=== PATIENT | female | born 1995 | race Caucasian/White ===

== ENCOUNTER → 2017-01-12 | Outpatient (CLI) | payer OTHER ==
[2017-01-12 17:53] LABS: URINE APPEARANCE CLEAR (CLEAR); URINE BILIRUBIN NEG (NEG); URINE COLOR YELLOW; URINE EPITHELIAL CELL AUTO >30 /lpf (0-5); URINE NITRITE NEG (NEG); URINE SPECIFIC GRAVITY 1.011 (1.000-1.030); UROBILINOGEN NEG (NEG)
[2017-01-12 17:57] LABS: MANUAL MICROSCOPIC REQUIRED? NO; REVIEW REQ? NO
== END ==
LOC: C.LABSPEC 17:30
PROVIDERS: ATTEND Obstetrics & Gynecology
DX: Z34.90 Encounter for supervision of normal pregnancy, unspecified, unspecified trimester (principal)

== ENCOUNTER → 2017-01-20 | Outpatient (CLI) | payer OTHER ==
[2017-01-22 16:31] LABS: CHLAMYDIA TRACH RNA*** NOT DETECTED (NOT DETECTED); GC (NEIS GONORRHOEAE)RNA** NOT DETECTED (NOT DETECTED)
== END | disposition home or self-care (01) ==
LOC: C.LABSPEC 17:28
PROVIDERS: ATTEND Obstetrics & Gynecology
DX: Z34.90 Encounter for supervision of normal pregnancy, unspecified, unspecified trimester (principal)

== ENCOUNTER → 2017-02-17 | Outpatient (CLI) | payer OTHER ==
[2017-02-17 17:28] LABS: BASO % 0.3 %; BASO ABS # 0.02 K/uL (0-0.2); COMPLETE YES; EOS % 0.8 %; IG% 0.3 %; LYMPH % 19.4 %; LYMPH ABS # 1.55 K/uL (1.2-3.4); MEAN CELL VOLUME 91.6 fL (80-100); MEAN CORPUSCULAR HEMOGLOBIN 31.8 pg (25-34); MEAN CORPUSCULAR HGB CONC 34.7 g/dl (32-36); MEAN PLATELET VOLUME 9.9 fL (7.4-10.4); MONO % 4.9 %; NEUT % 74.3 %; PLATELET COUNT 214 K/uL (130-400); RED BLOOD COUNT 4.15 M/uL (4.2-5.4); WHITE BLOOD COUNT 7.99 K/uL (4.8-10.8)
== END | disposition home or self-care (01) ==
LOC: C.LAB1850 15:51
PROVIDERS: ATTEND Obstetrics & Gynecology
DX: Z34.81 Encounter for supervision of other normal pregnancy, first trimester (principal)

== ENCOUNTER 2017-10-21 23:27 | Emergency (ER) | payer OTHER ==
[~2017-10-21] VITALS: Ht 165.1 cm; Wt 66.0 kg
[2017-10-21 23:34] VITALS: Ht 165.1 cm; Wt 66.0 kg
--- NOTE | 2017-10-22 00:11 | EMERGENCY ROOM VISIT NOTE ---
History Report prepared by Romy: Chintan Laureano Under the Supervision of: Dr. Mona Armstrong D.O. First contact with patient: 23:41 Chief Complaint: DIZZY Stated Complaint: CHEST PAIN, VISION DISTORTION, DIZZY, ANXIOUS History of Present Illness The patient is a 22 year old female who presents to the Emergency Room with complaints of constant bilateral arm numbness and chest heaviness beginning this evening. The patient states her symptoms have been alleviated slightly since onset. She reports she has been dealing with lightheadedness for the past three weeks, and her anxiety is through the roof. The patient notes she had her second baby 2.5 months ago, and she had her first period since giving yesterday. She states for the past three weeks her vision will become distorted when she drives. The patient reports it is too much for her eyes to 'take in' and her surrounding are very vivid. She notes she has not been able to drive for the past three weeks because it makes her feel like she is going to pass out , and she enters a severe panic attack and does not want to crash her car with her kids in it. She reports she was evaluated for her lightheadedness two weeks ago and was told to come to the ED. The patent notes she did not come to the ED then because her boyfriend could not drive her. She states this evening she had an episode that consisted of bilateral arm numbness, chest heaviness, and shortness of breath. The patient reports she came to the ED because she was too afraid not to. She notes she has been dealing with her anxiety of the past 4 years after she had her first child. The patient states she was never on medications because she did not want to take them. She reports she cannot go to a psychiatrist or therapy because she cannot afford it. The patient notes she will have panic attacks a few time a day, breath, and then feel better. She states she does not follow up with anyone now, but she did follow up with her doctor during her . The patient reports she has a history of gestational diabetes and used dietary treatment. She notes she lives with her boyfriend and two kids. The patient states she does not work, and her boyfriend does not understand her anxiety problems. She reports he is the father of both her children. The patient notes her family lives out of town, and she does not talk with the boyfriend's parents. She states the rest of the boyfriend's family is supportive. The patient denies drug use, alcohol use, abdominal pain, chance of being , suicidal ideation, homicidal ideation, and a history of hypertension. She notes she has not been drinking water; she drinks milk and cranberry juice. Source of History: patient Onset: this evening Position: chest, arm (bilateral) Quality: numbness (arm), other (chest heaviness) Associated Symptoms: + SOB, No abdominal pain Note: Associated symptoms: lightheadedness, vision changes Denies: drug use, alcohol use, chance of being , suicidal ideation, homicidal ideation Review of Systems See HPI for pertinent positives & negatives. A total of 10 systems reviewed and were otherwise negative. Past Medical & Surgical The patient states she has a history of anxiety. Family History Cancer Social History Smoking Status: Never Smoker Smokeless Tobacco Use: No Alcohol Use: none Drug Use: none Marital Status: in relationship Housing Status: lives with family Occupation Status: unemployed Current/Historical Medications No Active Prescriptions or Reported Meds Allergies Coded Allergies: No Known Allergies (Unverified , 10/22/17) Physical Exam Vital Signs Date Time Temp Pulse Resp B/P (MAP) Pulse Ox O2 Delivery O2 Flow Rate FiO2 10/22/17 01:43 37.2 87 18 118/76 98 10/22/17 01:25 87 18 118/76 98 Room Air 10/22/17 00:23 79 10/21/17 23:34 37.2 89 20 135/83 100 Room Air Physical Exam HEENT: Head - normocephalic and atraumatic Pupils are equal, round, and reactive to light. Extraocular eye muscles are intact, and sclera are anicteric. Nose - moist nasal mucosa without discharge. Mouth - moist buccal mucosa. Oropharynx is nonerythematous and there is no tonsillar exudate or edema noted. Neck: Supple; no JVD, nuchal rigidity, cervical lymphadenopathy. Heart: Regular rate and rhythm. There is a normal S1 and S2 with no murmurs, clicks, or gallops appreciated. Lungs: Clear to auscultation bilaterally with no wheezes, rales, or rhonchi. Abdomen: Soft, completely nontender, nondistended, with good bowel sounds. There are no palpable pulsatile masses or hepatosplenomegaly. There is no guarding, rigidity, or rebound noted. Extremities: No evidence of cyanosis, clubbing, or edema. There are easily palpable peripheral pulses. Skin: Pale, warm and dry with good turgor and no rashes. Psychiatric: Appears slightly anxious. Denies suicidal and homicidal ideations. Medical Decision & Procedures Laboratory Results 10/22/17 00:06 10/22/17 00:06 Test 10/22/17 00:06 10/22/17 00:17 Red Blood Count 4.48 M/uL (4.2-5.4) Mean Corpuscular Volume 90.8 fL (80-100) Mean Corpuscular Hemoglobin 31.9 pg (25-34) Mean Corpuscular Hemoglobin Concent 35.1 g/dl (32-36) RDW Standard Deviation 42.7 fL (36.4-46.3) RDW Coefficient of Variation 13.0 % (11.5-14.5) Mean Platelet Volume 9.4 fL (7.4-10.4) Anion Gap 5.0 mmol/L (3-11) Est Creatinine Clear Calc Drug Dose 106.8 ml/min Estimated GFR () 132.1 Estimated GFR (Non- 113.9 BUN/Creatinine Ratio 15.6 (10-20) Calcium Level 9.4 mg/dl (8.5-10.1) Troponin I < 0.015 ng/ml (0-0.045) Thyroid Stimulating Hormone (TSH) 2.310 uIu/ml (0.300-4.500) Urine Color YELLOW Urine Appearance CLEAR (CLEAR) Urine pH 5.0 (4.5-7.5) Urine Specific [place] 1.025 (1.000-1.030) Urine Protein NEG (NEG) Urine Glucose (UA) NEG (NEG) Urine Ketones NEG (NEG) Urine Occult Blood NEG (NEG) Urine Nitrite NEG (NEG) Urine Bilirubin NEG (NEG) Urine Urobilinogen NEG (NEG) Urine Leukocyte Esterase NEG (NEG) Urine Test NEG (NEG) Laboratory results per my review. ECG Indication: chest pain Rate (beats per minute): 74 Rhythm: normal sinus Findings: no acute ischemic change, no ectopy ED Course 2342: The patient was evaluated in room B05. A complete history and physical examination were performed. Nursing notes and previous electronic medical records were reviewed. labs were drawn as above. 0107: ED case management spoke with the patient and gave her advice for outside psychiatric management. 0128: Upon reevaluation, the patient is resting. I discussed findings and results with her. She verbalized agreement of the treatment plan. The patient was discharged home. Medical Decision The patient is a 22 year old female who presents to the ED with chest pain and left arm tingling. Differential diagnosis includes anxiety, pleurisy, costochondritis, GERD, depression, cardiac ischemia. Labs results show: normal WBC, stable H&H, normal TSH, normal glucose and renal function, potassium is slightly low at 3.4, negative Urinalysis, negative , normal troponin. The patient suffers from anxiety. She has not been taking her medications and does not receive counseling. The anxiety seems to of worsened. She now has associated vision changes, lightheadedness and tingling in her left arm. The patient has no interest in taking medications to treat the anxiety. However , she is interested in talking to someone or having therapy. Our case management evaluated her insurance and have provided her a list of information and ways to follow up for outpatient counseling Impression Primary Impression: Anxiety Scribe Attestation The scribe's documentation has been prepared under my direction and personally reviewed by me in its entirety. I confirm that the note above accurately reflects all work, treatment, procedures, and medical decision making performed by me. Departure Information Dispostion Home / Self-Care Prescriptions No Active Prescriptions or Reported Meds Referrals No Doctor, Assigned (PCP) Forms HOME CARE DOCUMENTATION FORM, IMPORTANT VISIT INFORMATION Patient Instructions Anxiety Body Response, Anxiety Disorder, Anxiety Disorder Tx W Therapy, My [facility] Additional Instructions Follow up with a counselor/therapist through [employer]. Return to ER if symptoms worsen.
[2017-10-22 00:21] LABS: HEMATOCRIT 40.7 % (37-47); MEAN CELL VOLUME 90.8 fL (80-100); MEAN CORPUSCULAR HEMOGLOBIN 31.9 pg (25-34); MEAN CORPUSCULAR HGB CONC 35.1 g/dl (32-36); MEAN PLATELET VOLUME 9.4 fL (7.4-10.4); PLATELET COUNT 250 K/uL (130-400); RED BLOOD COUNT 4.48 M/uL (4.2-5.4); WHITE BLOOD COUNT 7.67 K/uL (4.8-10.8)
[2017-10-22 00:38] LABS: BLOOD UREA NITROGEN 12 mg/dl (7-18); BUN/CREATININE RATIO 15.6 (10-20); CALCIUM 9.4 mg/dl (8.5-10.1); CARBON DIOXIDE 27 mmol/L (21-32); CHLORIDE 107 mmol/L (98-107); CREATININE 0.75 mg/dl (0.60-1.20); GLUCOSE 91 mg/dl (70-99); POTASSIUM 3.4 mmol/L (3.5-5.1); SODIUM 139 mmol/L (136-145)
[2017-10-22 00:46] LABS: URINE APPEARANCE CLEAR (CLEAR); URINE BILIRUBIN NEG (NEG); URINE COLOR YELLOW; URINE NITRITE NEG (NEG); URINE SPECIFIC GRAVITY 1.025 (1.000-1.030); UROBILINOGEN NEG (NEG)
[2017-10-22 01:08] LABS: MANUAL MICROSCOPIC REQUIRED? NO; REVIEW REQ? NO
[2017-10-22 01:25] LABS: PREG INTERNAL NEGATIVE QC NEG CLEAR BACKGROUND; PREG INTERNAL POSITIVE QC POS CONTROL LINE
[2017-10-22 01:43] VITALS: BP 118/76; PULSE 87; TEMP 37.2; O2SAT 98
== END 2017-10-22 01:44 | disposition home or self-care (01) ==
LOC: C.EDB 23:28
DX: F41.9 Anxiety disorder, unspecified (principal)

== ENCOUNTER 2017-11-29 20:24 | Emergency (ER) | payer OTHER ==
[~2017-11-29] VITALS: Ht 165.1 cm; Wt 65.4 kg
[2017-11-29 20:27] VITALS: TEMP 36.4; Ht 165.1 cm; Wt 65.4 kg
[2017-11-29] MEDS ORDERED: SODIUM CHLORIDE 0.9% 1000ML 1,000 ML IV STA (21:15)
--- NOTE | 2017-11-29 21:21 | EMERGENCY ROOM VISIT NOTE ---
History Report prepared by Romy: Leo Powers Under the Supervision of: Tyra BoydO. First contact with patient: 20:51 Chief Complaint: SHORTNESS OF BREATH Stated Complaint: SHORTNESS OF BREATH, CHEST TIGHTNESS, PAIN IN SHOU Nursing Triage Summary: see triage note History of Present Illness The patient is a 22 year old female who presents to the Emergency Room with complaints of persistent shortness of breath occurring earlier today. She additionally states that she was having some sharp chest pain that went into her left shoulder, and she states that the pain comes and goes. She notes that her heart is racing, and she is having some jaw numbness. She denies any back pain, leg swelling, fevers, chills, cough, difficulty urinating and vomiting. The patient states that she has nausea in the mornings and at night, and she has a headache. She notes that she has not been drinking fluid recently, and she states these symptoms are similar to her anxiety. She additionally states that she has not been able to sleep very well due to the anxiety. The patient states that she had a child 4 months ago, and she is currently bottle feeding the baby, and she states that she has felt weak since then. Source of History: patient Onset: earlier today Position: other (global) Quality: other (shortness of breath) Timing: other (persistent) Associated Symptoms: + chest pain, No fevers, No chills, No cough, No vomiting, No back pain Note: Associated symptoms: Heart racing, jaw numbness Review of Systems See HPI for pertinent positives & negatives. A total of 10 systems reviewed and were otherwise negative. Family History Cancer Social History Smoking Status: Never Smoker Alcohol Use: none Drug Use: none Marital Status: in relationship Housing Status: lives with family Occupation Status: unemployed Current/Historical Medications No Active Prescriptions or Reported Meds Allergies Coded Allergies: No Known Allergies (Unverified , 11/29/17) Physical Exam Vital Signs Date Time Temp Pulse Resp B/P (MAP) Pulse Ox O2 Delivery O2 Flow Rate FiO2 11/29/17 22:03 84 18 107/76 99 Room Air 11/29/17 20:27 36.4 90 18 134/87 99 Room Air Physical Exam GENERAL: alert, anxious appearing, well nourished, no distress, non-toxic EYE EXAM: normal conjunctiva, PERRL and EOM's grossly intact OROPHARYNX: no exudate, no erythema, lips, buccal mucosa, and tongue normal and mucous membranes are moist NECK: supple, no nuchal rigidity, no adenopathy, non-tender LUNGS: Clear to auscultation. Normal chest wall mechanics HEART: no murmurs, S1 normal and S2 normal ABDOMEN: abdomen soft, non-tender, normo-active bowel sounds, no masses, no rebound or guarding. BACK: Back is symmetrical on inspection and there is no deformity, no midline tenderness, no CVA tenderness. SKIN: no rashes and no bruising UPPER EXTREMITIES: upper extremities are grossly normal. LOWER EXTREMITIES: No pitting edema. NEURO EXAM: Normal sensorium, cranial nerves II-XII grossly intact, normal speech, no gross weakness of arms, no gross weakness of legs. Medical Decision & Procedures ER Provider Diagnostic Interpretation: Radiology results have been interpreted by the radiologist and reviewed by me. CHEST ONE VIEW PORTABLE HISTORY: Atypical chest pain COMPARISON: None. FINDINGS: The lungs are clear. Cardiac silhouette is normal in size. No pleural effusions. No pneumothorax. IMPRESSION: No acute process. Electronically signed by: Toro Obando M.D. 11/29/2017 9:48 PM Dictated Date/Time: 11/29/2017 9:47 PM Laboratory Results 11/29/17 21:01 Red Blood Count 4.71, Mean Corpuscular Volume 91.3, Mean Corpuscular Hemoglobin 32.3, Mean Corpuscular Hemoglobin Concent 35.3, Mean Platelet Volume 9.7, Neutrophils (%) (Auto) 66.8, Lymphocytes (%) (Auto) 26.2, Monocytes (%) (Auto) 5.3, Eosinophils (%) (Auto) 1.2, Basophils (%) (Auto) 0.4, Neutrophils # (Auto) 5.39, Lymphocytes # (Auto) 2.12, Monocytes # (Auto) 0.43, Eosinophils # (Auto) 0.10, Basophils # (Auto) 0.03 11/29/17 21:01 Test 11/29/17 21:01 11/29/17 21:08 White Blood Count 8.08 K/uL (4.8-10.8) Red Blood Count 4.71 M/uL (4.2-5.4) Hemoglobin 15.2 g/dL (12.0-16.0) Hematocrit 43.0 % (37-47) Mean Corpuscular Volume 91.3 fL (80-100) Mean Corpuscular Hemoglobin 32.3 pg (25-34) Mean Corpuscular Hemoglobin Concent 35.3 g/dl (32-36) Platelet Count 281 K/uL (130-400) Mean Platelet Volume 9.7 fL (7.4-10.4) Neutrophils (%) (Auto) 66.8 % Lymphocytes (%) (Auto) 26.2 % Monocytes (%) (Auto) 5.3 % Eosinophils (%) (Auto) 1.2 % Basophils (%) (Auto) 0.4 % Neutrophils # (Auto) 5.39 K/uL (1.4-6.5) Lymphocytes # (Auto) 2.12 K/uL (1.2-3.4) Monocytes # (Auto) 0.43 K/uL (0.11-0.59) Eosinophils # (Auto) 0.10 K/uL (0-0.5) Basophils # (Auto) 0.03 K/uL (0-0.2) RDW Standard Deviation 40.6 fL (36.4-46.3) RDW Coefficient of Variation 12.1 % (11.5-14.5) Immature Granulocyte % (Auto) 0.1 % Immature Granulocyte # (Auto) 0.01 K/uL (0.00-0.02) Anion Gap 7.0 mmol/L (3-11) Est Creatinine Clear Calc Drug Dose 85.2 ml/min Estimated GFR () 100.5 Estimated GFR (Non- 86.7 BUN/Creatinine Ratio 18.9 (10-20) Calcium Level 9.8 mg/dl (8.5-10.1) Magnesium Level 1.8 mg/dl (1.8-2.4) Total Bilirubin 0.3 mg/dl (0.2-1) Aspartate Amino Transf (AST/SGOT) 16 U/L (15-37) Alanine Aminotransferase (ALT/SGPT) 33 U/L (12-78) Alkaline Phosphatase 76 U/L (45-117) Troponin I < 0.015 ng/ml (0-0.045) Total Protein 8.2 gm/dl (6.4-8.2) Albumin 4.4 gm/dl (3.4-5.0) Globulin 3.8 gm/dl (2.5-4.0) Albumin/Globulin Ratio 1.1 (0.9-2) Thyroid Stimulating Hormone (TSH) 1.410 uIu/ml (0.300-4.500) Monoscreen NEG (NEG) Urine Color YELLOW Urine Appearance CLEAR (CLEAR) Urine pH 7.5 (4.5-7.5) Urine Specific [place] 1.009 (1.000-1.030) Urine Protein NEG (NEG) Urine Glucose (UA) NEG (NEG) Urine Ketones NEG (NEG) Urine Occult Blood NEG (NEG) Urine Nitrite NEG (NEG) Urine Bilirubin NEG (NEG) Urine Urobilinogen NEG (NEG) Urine Leukocyte Esterase SMALL (NEG) Urine WBC (Auto) 1-5 /hpf (0-5) Urine RBC (Auto) 0-4 /hpf (0-4) Urine Hyaline Casts (Auto) 1-5 /lpf (0-5) Urine Epithelial Cells (Auto) >30 /lpf (0-5) Urine Bacteria (Auto) NEG (NEG) Laboratory results per my review. Medications Administered Medications (Trade) Dose Ordered Sig/Li Route Start Time Stop Time Status Last Admin Dose Admin Sodium Chloride 1,000 ml @ 999 mls/hr Q1H1M STAT IV 11/29/17 21:15 11/29/17 22:15 DC 11/29/17 21:15 999 MLS/HR ECG Indication: SOB/dyspnea Rate (beats per minute): 84 Rhythm: normal sinus Findings: no acute ischemic change, no ectopy, other (Normal intervals. Nomral axis. Baseline artifact) Change: EKG: Patient's electrocardiogram per my interpretation. ED Course 2056: The patient was evaluated in room A11. A complete history and physical exam was performed. 2114: Sodium Chloride 1000 ml @ 999 mls/hr IV 2154: Upon reevaluation, the patient is feeling better. I discussed the findings and the treatment plan with the patient. She verbalizes agreement and understanding. She was discharged home and will follow up with her PCP this week. Medical Decision Differential diagnosis: Etiologies such as infections, reactive airway disease, pneumonia, pneumothorax , COPD, CHF, cardiac ischemia, pulmonary embolism, musculoskeletal, gastrointestinal, as well as others were entertained. Pt very anxious here, doubt acs, no risk factors for heart disease. Pt low risk wells and perc negative. Labs and imaging otw reassuring. Pt asking to leave during discussion about possible etiology and f/u with her PCP. VS stable here. No dysrhythmias noted on tele. Doubt vascular etiology, doubt occult infectious etiology. Doubt post complication. Discussed with pt sx to watch/return for, she verbalized understanding and was agreeable with plan. Medication Reconcilliation Current Medication List: was personally reviewed by me Blood Pressure Screening Patient's blood pressure: Normal blood pressure Impression Primary Impression: Chest pain Additional Impression: Anxiety Scribe Attestation The scribe's documentation has been prepared under my direction and personally reviewed by me in its entirety. I confirm that the note above accurately reflects all work, treatment, procedures, and medical decision making performed by me. Departure Information Dispostion Home / Self-Care Prescriptions No Active Prescriptions or Reported Meds Referrals No Doctor, Assigned (PCP) Forms HOME CARE DOCUMENTATION FORM, IMPORTANT VISIT INFORMATION Patient Instructions ED Chest Pain TRISHA Romero, My [facility] Additional Instructions Please call and follow up with your family doctor. If you have any recurrent or worsening chest pain, develop trouble breathing, fevers, vomiting, rash or sores, you have any other new concerns, please return the emergency room. Problem Qualifiers Primary Impression: Chest pain Chest pain type: unspecified Qualified Codes: R07.9 - Chest pain, unspecified
[2017-11-29 21:22] LABS: BASO % 0.4 %; BASO ABS # 0.03 K/uL (0-0.2); EOS % 1.2 %; HEMOGLOBIN 15.2 g/dL (12.0-16.0); IG# 0.01 K/uL (0.00-0.02); LYMPH % 26.2 %; LYMPH ABS # 2.12 K/uL (1.2-3.4); MEAN CELL VOLUME 91.3 fL (80-100); MEAN CORPUSCULAR HEMOGLOBIN 32.3 pg (25-34); MEAN CORPUSCULAR HGB CONC 35.3 g/dl (32-36); MEAN PLATELET VOLUME 9.7 fL (7.4-10.4); MONO % 5.3 %; MONO ABS # 0.43 K/uL (0.11-0.59); NEUT % 66.8 %; NEUT ABS # 5.39 K/uL (1.4-6.5); PLATELET COUNT 281 K/uL (130-400); RED CELL DISTRIBUTION WIDTH CV 12.1 % (11.5-14.5); RED CELL DISTRIBUTION WIDTH SD 40.6 fL (36.4-46.3); WHITE BLOOD COUNT 8.08 K/uL (4.8-10.8)
[2017-11-29 21:30] LABS: ALBUMIN 4.4 gm/dl (3.4-5.0); ALT/SGPT 33 U/L (12-78); BLOOD UREA NITROGEN 18 mg/dl (7-18); CALCIUM 9.8 mg/dl (8.5-10.1); CARBON DIOXIDE 28 mmol/L (21-32); CREATININE 0.94 mg/dl (0.60-1.20); GLUCOSE 86 mg/dl (70-99); POTASSIUM 3.7 mmol/L (3.5-5.1); SODIUM 138 mmol/L (136-145)
[2017-11-29 21:47] LABS: ALKALINE PHOSPHATASE 76 U/L (45-117); AST/SGOT 16 U/L (15-37); TOTAL PROTEIN 8.2 gm/dl (6.4-8.2)
--- NOTE | 2017-11-29 21:49 | DIAGNOSTIC IMAGING REPORT ---
CHEST ONE VIEW PORTABLE HISTORY: Atypical chest pain COMPARISON: None. FINDINGS: The lungs are clear. Cardiac silhouette is normal in size. No pleural effusions. No pneumothorax. IMPRESSION: No acute process. Electronically signed by: Toro Obando M.D. 11/29/2017 9:48 PM Dictated Date/Time: 11/29/2017 9:47 PM
[2017-11-29 22:03] VITALS: BP 107/76; PULSE 84; O2SAT 99
== END 2017-11-29 22:09 | disposition home or self-care (01) ==
LOC: C.EDB 20:25 → C.EDA 22:09
DX: R07.9 Chest pain, unspecified (principal); F41.9 Anxiety disorder, unspecified; R06.02 Shortness of breath; M25.512 Pain in left shoulder

== ENCOUNTER 2018-02-04 20:48 | Emergency (ER) | payer OTHER ==
[~2018-02-04] VITALS: Ht 165.1 cm; Wt 61.9 kg
[2018-02-04 20:58] VITALS: TEMP 36.4; Ht 165.1 cm; Wt 61.9 kg
[2018-02-04 21:57] VITALS: O2SAT 100
--- NOTE | 2018-02-04 22:27 | DIAGNOSTIC IMAGING REPORT ---
CHEST ONE VIEW PORTABLE CLINICAL HISTORY: 22 years-old Female presenting with chest pain, sob. TECHNIQUE: Portable upright AP view of the chest was obtained. COMPARISON: 11/29/2017. FINDINGS: Cardiomediastinal silhouette normal. Lungs and pleural spaces clear. Osseous structures normal. Upper abdomen normal. IMPRESSION: 1. No acute cardiopulmonary disease. Electronically signed by: Silvano Dudley M.D. 02/04/2018 10:26 PM Dictated Date/Time: 02/04/2018 10:25 PM
[2018-02-04 22:48] LABS: BASO % 0.3 %; BASO ABS # 0.03 K/uL (0-0.2); EOS % 0.9 %; EOS ABS # 0.08 K/uL (0-0.5); HEMATOCRIT 38.2 % (37-47); HEMOGLOBIN 13.8 g/dL (12.0-16.0); IG# 0.02 K/uL (0.00-0.02); LYMPH % 21.5 %; LYMPH ABS # 1.87 K/uL (1.2-3.4); MEAN CORPUSCULAR HEMOGLOBIN 31.8 pg (25-34); MEAN CORPUSCULAR HGB CONC 36.1 g/dl (32-36); MEAN PLATELET VOLUME 9.7 fL (7.4-10.4); MONO % 5.9 %; MONO ABS # 0.51 K/uL (0.11-0.59); NEUT % 71.2 %; NEUT ABS # 6.19 K/uL (1.4-6.5); PLATELET COUNT 250 K/uL (130-400); RED CELL DISTRIBUTION WIDTH SD 38.5 fL (36.4-46.3)
[2018-02-04 23:08] LABS: ALBUMIN 4.1 gm/dl (3.4-5.0); ALT/SGPT 20 U/L (12-78); AST/SGOT 11 U/L (15-37); BLOOD UREA NITROGEN 18 mg/dl (7-18); CALCIUM 9.3 mg/dl (8.5-10.1); CARBON DIOXIDE 26 mmol/L (21-32); CREATININE 0.95 mg/dl (0.60-1.20); GLUCOSE 120 mg/dl (70-99); SODIUM 141 mmol/L (136-145)
[2018-02-04 23:13] LABS: ALKALINE PHOSPHATASE 72 U/L (45-117); TOTAL PROTEIN 7.6 gm/dl (6.4-8.2)
[2018-02-04] MEDS ORDERED: SODIUM CHLORIDE 0.9% 1000ML 1,000 ML IV STA (23:35)
--- NOTE | 2018-02-04 23:58 | EMERGENCY ROOM VISIT NOTE ---
History First contact with patient: 21:46 Chief Complaint: ILLNESS Stated Complaint: CHEST PAIN,SHOULDER PAIN,AIR HUNGER,DIZZY,FAINT History of Present Illness The patient is a 22 year old female who presents to the Emergency Room with complaints of lightheadedness, shortness of breath and chest pain. The patient states that she has constant lightheadedness and feeling like she is not getting enough air when she breathes. She states that at times, when she feels short of breath she develops a pain in her left upper chest and into her shoulder. She states the symptoms have been ongoing for the past 6 months since she gave . She does admit to feeling very anxious. She has been seen here 2 times for her symptoms with negative workups but states that her symptoms have been worsening. She does not take any medications for her symptoms. She has not passed out. She recently was set up with a primary care provider and states that they ordered a thyroid panel, Lyme testing and asthma testing but she has not yet had this completed. She rates her overall discomfort a 2/10. She has sharp pains in her lower abdomen on occasion, but denies any such pain at this time. She is not a smoker. No recent travel. The patient states she is typically healthy. She does not feel depressed. Review of Systems A complete 10 point review of systems was reviewed with the patient with pertinent positives and negatives as per history of present illness. All else were negative. Past Medical/Surgical History Medical Problems: (1) No significant active problems Family History Cancer Social History Smoking Status: Never Smoker Alcohol Use: none Drug Use: none Marital Status: in relationship Housing Status: lives with family Occupation Status: unemployed Current/Historical Medications No Active Prescriptions or Reported Meds Physical Exam Vital Signs Date Time Temp Pulse Resp B/P (MAP) Pulse Ox O2 Delivery O2 Flow Rate FiO2 02/05/18 00:06 103 15 125/86 100 02/04/18 23:42 103 15 125/86 100 Room Air 02/04/18 21:57 100 Room Air 02/04/18 21:56 106 02/04/18 21:54 107 18 127/84 100 Room Air 02/04/18 20:58 36.4 113 18 140/90 97 Room Air Physical Exam VITALS: Vitals are noted on the nurse's note and reviewed by myself. Vital signs stable. GENERAL: This is a 22-year-old femur, in no acute distress, nondiaphoretic, well -developed well-nourished. SKIN: The skin was without rashes. EARS: External auditory canals clear, tympanic membranes pearly [place] without erythema or effusion bilaterally. EYES: Pupils equal round and reactive to light and accommodation. MOUTH: Mucous membranes moist. Tonsils are not enlarged. Pharynx without erythema or exudate. NECK: Supple without nuchal rigidity. No lymphadenopathy. HEART: Regular rate and rhythm without murmurs gallops or rubs. LUNGS: Clear to auscultation bilaterally without wheezes, rales or rhonchi. No retractions or accessory muscle use. ABDOMEN: Positive bowel sounds x 4. Soft, nontender to palpation. MUSCULOSKELETAL: Strength 5/5 throughout. NEURO: Patient was alert and oriented to person place and time. Medical Decision & Procedures ER Provider Diagnostic Interpretation: CHEST ONE VIEW PORTABLE CLINICAL HISTORY: 22 years-old Female presenting with chest pain, sob. TECHNIQUE: Portable upright AP view of the chest was obtained. COMPARISON: 11/29/2017. FINDINGS: Cardiomediastinal silhouette normal. Lungs and pleural spaces clear. Osseous structures normal. Upper abdomen normal. IMPRESSION: 1. No acute cardiopulmonary disease. Laboratory Results 02/04/18 22:25 Red Blood Count 4.34, Mean Corpuscular Volume 88.0, Mean Corpuscular Hemoglobin 31.8, Mean Corpuscular Hemoglobin Concent 36.1, Mean Platelet Volume 9.7, Neutrophils (%) (Auto) 71.2, Lymphocytes (%) (Auto) 21.5, Monocytes (%) (Auto) 5.9, Eosinophils (%) (Auto) 0.9, Basophils (%) (Auto) 0.3, Neutrophils # (Auto) 6.19, Lymphocytes # (Auto) 1.87, Monocytes # (Auto) 0.51, Eosinophils # (Auto) 0.08, Basophils # (Auto) 0.03 02/04/18 22:25 Test 02/04/18 00:00 02/04/18 22:25 Urine Color YELLOW Urine Appearance CLEAR (CLEAR) Urine pH 8.0 (4.5-7.5) Urine Specific [place] 1.016 (1.000-1.030) Urine Protein NEG (NEG) Urine Glucose (UA) NEG (NEG) Urine Ketones 1+ (NEG) Urine Occult Blood NEG (NEG) Urine Nitrite NEG (NEG) Urine Bilirubin NEG (NEG) Urine Urobilinogen NEG (NEG) Urine Leukocyte Esterase SMALL (NEG) Urine WBC (Auto) 5-10 /hpf (0-5) Urine RBC (Auto) 0-4 /hpf (0-4) Urine Hyaline Casts (Auto) 0 /lpf (0-5) Urine Epithelial Cells (Auto) >30 /lpf (0-5) Urine Bacteria (Auto) NEG (NEG) White Blood Count 8.70 K/uL (4.8-10.8) Red Blood Count 4.34 M/uL (4.2-5.4) Hemoglobin 13.8 g/dL (12.0-16.0) Hematocrit 38.2 % (37-47) Mean Corpuscular Volume 88.0 fL (80-100) Mean Corpuscular Hemoglobin 31.8 pg (25-34) Mean Corpuscular Hemoglobin Concent 36.1 g/dl (32-36) Platelet Count 250 K/uL (130-400) Mean Platelet Volume 9.7 fL (7.4-10.4) Neutrophils (%) (Auto) 71.2 % Lymphocytes (%) (Auto) 21.5 % Monocytes (%) (Auto) 5.9 % Eosinophils (%) (Auto) 0.9 % Basophils (%) (Auto) 0.3 % Neutrophils # (Auto) 6.19 K/uL (1.4-6.5) Lymphocytes # (Auto) 1.87 K/uL (1.2-3.4) Monocytes # (Auto) 0.51 K/uL (0.11-0.59) Eosinophils # (Auto) 0.08 K/uL (0-0.5) Basophils # (Auto) 0.03 K/uL (0-0.2) RDW Standard Deviation 38.5 fL (36.4-46.3) RDW Coefficient of Variation 12.0 % (11.5-14.5) Immature Granulocyte % (Auto) 0.2 % Immature Granulocyte # (Auto) 0.02 K/uL (0.00-0.02) D-Dimer 250 ug/L FEU (0-500) Anion Gap 7.0 mmol/L (3-11) Est Creatinine Clear Calc Drug Dose 84.3 ml/min Estimated GFR () 99.2 Estimated GFR (Non- 85.6 BUN/Creatinine Ratio 19.2 (10-20) Calcium Level 9.3 mg/dl (8.5-10.1) Total Bilirubin 0.5 mg/dl (0.2-1) Aspartate Amino Transf (AST/SGOT) 11 U/L (15-37) Alanine Aminotransferase (ALT/SGPT) 20 U/L (12-78) Alkaline Phosphatase 72 U/L (45-117) Troponin I < 0.015 ng/ml (0-0.045) Total Protein 7.6 gm/dl (6.4-8.2) Albumin 4.1 gm/dl (3.4-5.0) Globulin 3.5 gm/dl (2.5-4.0) Albumin/Globulin Ratio 1.2 (0.9-2) Free Thyroxine 1.13 ng/dl (0.80-1.60) Free Triiodothyronine 3.75 pg/ml (2.30-4.20) Human Chorionic Gonadotropin, Qual NEG (NEG) Lyme Disease IgG Antibody NEG (NEG) Lyme Disease IgM Antibody NEG (NEG) ECG Per My Interpretation Rate (beats per minute): 109 Rhythm: sinus tachycardia Findings: nonspecific-ST abn (Anterior), no acute ischemic change, no ectopy Change: no significant change Medical Decision Differential diagnosis includes acute coronary syndrome, pulmonary embolism, pneumothorax, pericarditis, myocarditis, endocarditis, anxiety, musculoskeletal pain, GERD, costochondritis, pneumonia, among others. The patient is a 22-year-old female who presents today complaining of left- sided chest pain as well as lightheadedness and shortness of breath. The symptoms have been ongoing for several months. She has been seen here a few times and by her primary care provider for the symptoms. Labs today revealed no leukocytosis or anemia. Patient was found to be hypokalemic with potassium of 3.0. I advised a dose of oral potassium but the patient states she prefers to take this at home. She agrees to have this rechecked by her primary care provider. Urinalysis was not suggestive of infection. Serum was negative. Troponin and d-dimer were negative. EKG was interpreted by myself and shows sinus tachycardia, similar to her previous EKG. I advised IV fluids but the patient declined. She does admit to significant anxiety which likely contributes to these symptoms. She was advised to follow very closely with her PCP this week to discuss this workup. The patient's case was reviewed with Dr. Villarreal, ED attending physician, who agreed with my assessment and treatment plan. Based on the patient's presentation and work up, I feel the patient is stable for outpatient treatment. The patient was educated to return to the emergency department for any worsening of their current condition or new/concerning symptoms. She will follow up with her PCP. Medication Reconcilliation Current Medication List: was personally reviewed by me Blood Pressure Screening Patient's blood pressure: Normal blood pressure Impression Primary Impression: Left sided chest pain Departure Information Dispostion Home / Self-Care Condition GOOD Prescriptions No Active Prescriptions or Reported Meds Referrals Smiley Duncan PA-C (PCP) Patient Instructions My [facility] Additional Instructions You have been treated in the Emergency Department for your Chest Pain. Laboratory results and Imaging Studies have ruled out any acute cardiac or pulmonary cause of your chest pain. For pain control, you can use the following [id number]-[id number] medicines (if >12 yo): - Regular strength (325mg/tab) Tylenol (acetaminophen) 2 tabs every 4-6 hours as needed. Do not exceed 12 tablets in a 24 hour period. Avoid taking more than 4 grams (4000 mg) of Tylenol per day. This includes any other sources of acetaminophen you may take on a regular basis. - Regular strength (200 mg/tab) Advil (ibuprofen) 1-2 tabs every 4-6 hours as needed. Do not exceed a dose of 3200 mg per day. Your Lyme test and T3 test were still pending at time of discharge. You or your primary care provider can call here to check on those results. Your potassium was low today. Try to increase potassium of your diet and have this rechecked by your primary care provider. You should schedule a follow-up appointment with your Primary Care Provider in 2 -3 days for further evaluation from today's Emergency Department visit. They may consider adding an anxiety medication such as Vistaril. Return to the Emergency Department if your current symptoms worsen despite treatment course outlined above, or if you develop any of the following symptoms : worsening chest pain, associated jaw/arm pain, nausea, dizziness, worsening shortness of breath, bloody cough, or fainting.
[2018-02-05 00:06] VITALS: BP 125/86; PULSE 103; O2SAT 100
== END 2018-02-05 00:07 | disposition home or self-care (01) ==
LOC: C.EDB 20:50 → C.EDA 02-05 00:07
DX: R07.9 Chest pain, unspecified (principal); R42 Dizziness and giddiness; R06.02 Shortness of breath; Z80.9 Family history of malignant neoplasm, unspecified; E87.6 Hypokalemia; F41.9 Anxiety disorder, unspecified

== ENCOUNTER 2018-03-20 14:35 | Emergency (ER) | payer OTHER ==
[~2018-03-20] VITALS: Ht 165.1 cm; Wt 60.0 kg
[2018-03-20 14:38] VITALS: TEMP 36.7; Ht 165.1 cm; Wt 60.0 kg
[2018-03-20] MEDS ORDERED: ONDANSETRON INJ 2 MG/ML 2 ML VIAL IV STA (14:49)
[2018-03-20] MEDS ORDERED: SODIUM CHLORIDE 0.9% 1000ML 2,000 ML IV STA (14:49)
[2018-03-20 15:30] LABS: BASO % 0.1 %; BASO ABS # 0.01 K/uL (0-0.2); HEMATOCRIT 42.4 % (37-47); HEMOGLOBIN 15.2 g/dL (12.0-16.0); IG# 0.01 K/uL (0.00-0.02); LYMPH % 8.3 %; LYMPH ABS # 0.66 K/uL (1.2-3.4); MEAN CELL VOLUME 89.6 fL (80-100); MEAN CORPUSCULAR HEMOGLOBIN 32.1 pg (25-34); MEAN CORPUSCULAR HGB CONC 35.8 g/dl (32-36); MEAN PLATELET VOLUME 9.3 fL (7.4-10.4); MONO % 4.9 %; MONO ABS # 0.39 K/uL (0.11-0.59); NEUT % 86.6 %; NEUT ABS # 6.84 K/uL (1.4-6.5); PLATELET COUNT 211 K/uL (130-400); RED CELL DISTRIBUTION WIDTH CV 12.2 % (11.5-14.5); RED CELL DISTRIBUTION WIDTH SD 39.5 fL (36.4-46.3); WHITE BLOOD COUNT 7.91 K/uL (4.8-10.8)
[2018-03-20 15:53] LABS: ALBUMIN 4.1 gm/dl (3.4-5.0); ALT/SGPT 21 U/L (12-78); AST/SGOT 21 U/L (15-37); BLOOD UREA NITROGEN 8 mg/dl (7-18); CALCIUM 8.9 mg/dl (8.5-10.1); CARBON DIOXIDE 23 mmol/L (21-32); GLUCOSE 82 mg/dl (70-99); LIPASE 91 U/L (73-393); POTASSIUM 4.2 mmol/L (3.5-5.1); SODIUM 137 mmol/L (136-145)
[2018-03-20 16:00] LABS: ALKALINE PHOSPHATASE 79 U/L (45-117); TOTAL PROTEIN 8.1 gm/dl (6.4-8.2)
[2018-03-20] MEDS ORDERED: OPTIRAY 320 IV PRN (17:15)
--- NOTE | 2018-03-20 17:38 | DIAGNOSTIC IMAGING REPORT ---
CT ABD/PELVIS IV CONTRAST ONLY CLINICAL HISTORY: Analyzed abdominal pain. Bloody stool. COMPARISON STUDY: None. TECHNIQUE: Following the IV administration of 116 mL of Optiray-320, CT scan of the abdomen and pelvis was performed from the lung bases to the proximal femurs. Images are reviewed in the axial, sagittal, and coronal planes. IV contrast was administered without complication. A dose lowering technique was utilized adhering to the principles of ALARA. CT DOSE: 355.49 mGycm FINDINGS: Lower chest: The heart is normal in size and configuration, without pericardial effusion. The lung bases and pleural spaces are clear. Liver: The contrast-enhanced liver is normal in size, contour, and attenuation. There is no intrahepatic biliary ductal dilatation. The hepatic veins and portal veins are patent. Gallbladder: Unremarkable. Spleen: Borderline enlarged measuring 13 cm Pancreas: Unremarkable. Adrenal glands: Unremarkable. Kidneys: There is symmetric renal cortical enhancement. The kidneys are normal in size without hydronephrosis. Bowel: There are no transition zones indicate bowel obstruction. There is diffuse colonic wall thickening consistent with a pancolitis. The appendix is not visualized with certainty. There is a nonspecific mesenteric swirl sign. This is of doubtful acute clinical significance as there are no findings to indicate a small bowel obstruction Peritoneum: There is trace free pelvic fluid. No free air is visualized. Vasculature: The abdominal aorta is normal in course and caliber. Adenopathy: None. Pelvic viscera: The bladder, and pelvic viscera are unremarkable. Skeletal structures: No destructive osseous lesions are seen. IMPRESSION: 1. Diffuse colonic wall thickening indicative of a pancolitis Electronically signed by: Jorge Murphy M.D. 03/20/2018 5:37 PM Dictated Date/Time: 03/20/2018 5:33 PM
[2018-03-20] MEDS ORDERED: SODIUM CHLORIDE 0.9% 1000ML 1,000 ML IV STA (17:57)
[2018-03-20] MEDS ORDERED: CIPROFLOXACIN 500 MG TAB PO STA (19:16)
[2018-03-20] MEDS ORDERED: CIPR-255 PO (19:25)
[2018-03-20] MEDS ORDERED: ONDA4TAB46 PO (19:25)
[2018-03-20 19:26] VITALS: BP 107/71; PULSE 100; O2SAT 99
--- NOTE | 2018-03-20 21:23 | EMERGENCY ROOM VISIT NOTE ---
History Report prepared by Scribe: Joann Parada Under the Supervision of: Dr. Benito Anna D.O. First contact with patient: 14:43 Chief Complaint: ABDOMINAL PAIN Stated Complaint: BLOODY BOWEL MOVEMENT, COLD SWEAT, ABD PAIN History of Present Illness The patient is a 22 year old female who presents to the Emergency Room with complaints of persistent abdominal pain for the past 3 days. She rates her discomfort as a 7/10 in severity and states it radiates into her chest. For the past few days, she has experienced diarrhea and last night, she experienced hematochezia. She denies any recent travel, backpacking or hiking trips. She denies any recent sick contacts. She does feel nauseous but has not vomited. Her LMP was on February 17. There is a possibility she is , but she states she took a test on March 17 that came back negative. She still has both her gallbladder and appendix. Pt denies headache, change in vision, fevers, chest pain, shortness of breath, vomiting, pain with urination, and melena. Patient denies diabetes, hypertension, hyperlipidemia, CAD, history of sudden at a young age, and smoking. Source of History: patient Onset: 3 days ACCOUNTANT CERTIFIED PUBLIC Position: abdomen Symptom Intensity: 7/10 Timing: other (persistent) Associated Symptoms: + nausea, + hematochezia, + diarrhea, No fevers, No headache, No chest pain, No SOB, No vomiting, No melena, No urinary symptoms Review of Systems See HPI for pertinent positives & negatives. A total of 10 systems reviewed and were otherwise negative. Past Medical & Surgical Medical Problems: (1) No significant active problems Family History Cancer Social History Smoking Status: Never Smoker Alcohol Use: none Drug Use: none Marital Status: in relationship Housing Status: lives with family Occupation Status: unemployed Current/Historical Medications Scheduled Ciprofloxacin Hcl (Cipro), 500 MG PO BID Scheduled PRN Ondansetron Hcl (Zofran), 4 MG PO TID PRN for Nausea Allergies Coded Allergies: Nifedipine (Verified Allergy, Unknown, Tachycardia, 03/20/18) Physical Exam Vital Signs Date Time Temp Pulse Resp B/P (MAP) Pulse Ox O2 Delivery O2 Flow Rate FiO2 03/20/18 19:26 100 16 107/71 99 03/20/18 19:02 101 16 121/80 98 Room Air 03/20/18 18:35 101 17 100 03/20/18 18:22 96/54 03/20/18 18:05 101 12 99 03/20/18 17:35 100 18 97 03/20/18 17:11 /40 03/20/18 16:35 102 22 03/20/18 16:05 107 18 03/20/18 15:35 123 17 03/20/18 15:31 114 03/20/18 15:31 113 18 118/82 96 Room Air 03/20/18 15:10 118/82 03/20/18 14:38 36.7 146 16 111/75 99 Room Air Physical Exam GENERAL: Sitting up in bed, alert, well appearing, well nourished, no distress, non-toxic EYE EXAM: normal conjunctiva. OROPHARYNX: no exudate, no erythema, lips, buccal mucosa, and tongue normal and mucous membranes are moist NECK: supple, no nuchal rigidity, no adenopathy, non-tender LUNGS: Clear to auscultation. Normal chest wall mechanics HEART: Tachycardic heart rate, regular rhythm, no murmurs, S1 normal and S2 normal ABDOMEN: abdomen soft, minimal tenderness in epigastric region, normo-active bowel sounds, no masses, no rebound or guarding. BACK: Back is symmetrical on inspection and there is no deformity, no midline tenderness, no CVA tenderness. SKIN: no rashes and no bruising RECTAL: hem neg UPPER EXTREMITIES: upper extremities are grossly normal. LOWER EXTREMITIES: No pitting edema. NEURO EXAM: Normal sensorium, cranial nerves II-XII grossly intact, normal speech, no gross weakness of arms, no gross weakness of legs. Gross sensation intact. Medical Decision & Procedures ER Provider Diagnostic Interpretation: Radiology results as stated below per my review and the radiologist's interpretation: CT ABD/PELVIS IV CONTRAST ONLY CLINICAL HISTORY: Analyzed abdominal pain. Bloody stool. COMPARISON STUDY: None. TECHNIQUE: Following the IV administration of 116 mL of Optiray-320, CT scan of the abdomen and pelvis was performed from the lung bases to the proximal femurs. Images are reviewed in the axial, sagittal, and coronal planes. IV contrast was administered without complication. A dose lowering technique was utilized adhering to the principles of ALARA. CT DOSE: 355.49 mGycm FINDINGS: Lower chest: The heart is normal in size and configuration, without pericardial effusion. The lung bases and pleural spaces are clear. Liver: The contrast-enhanced liver is normal in size, contour, and attenuation. There is no intrahepatic biliary ductal dilatation. The hepatic veins and portal veins are patent. Gallbladder: Unremarkable. Spleen: Borderline enlarged measuring 13 cm Pancreas: Unremarkable. Adrenal glands: Unremarkable. Kidneys: There is symmetric renal cortical enhancement. The kidneys are normal in size without hydronephrosis. Bowel: There are no transition zones indicate bowel obstruction. There is diffuse colonic wall thickening consistent with a pancolitis. The appendix is not visualized with certainty. There is a nonspecific mesenteric swirl sign. This is of doubtful acute clinical significance as there are no findings to indicate a small bowel obstruction Peritoneum: There is trace free pelvic fluid. No free air is visualized. Vasculature: The abdominal aorta is normal in course and caliber. Adenopathy: None. Pelvic viscera: The bladder, and pelvic viscera are unremarkable. Skeletal structures: No destructive osseous lesions are seen. IMPRESSION: 1. Diffuse colonic wall thickening indicative of a pancolitis Electronically signed by: Jorge Murphy M.D. 03/20/2018 5:37 PM Laboratory Results 03/20/18 15:15 Red Blood Count 4.73, Mean Corpuscular Volume 89.6, Mean Corpuscular Hemoglobin 32.1, Mean Corpuscular Hemoglobin Concent 35.8, Mean Platelet Volume 9.3, Neutrophils (%) (Auto) 86.6, Lymphocytes (%) (Auto) 8.3, Monocytes (%) (Auto) 4.9, Eosinophils (%) (Auto) 0.0, Basophils (%) (Auto) 0.1, Neutrophils # (Auto) 6.84, Lymphocytes # (Auto) 0.66, Monocytes # (Auto) 0.39, Eosinophils # (Auto) 0.00, Basophils # (Auto) 0.01 03/20/18 15:15 Test 03/20/18 15:10 03/20/18 15:15 03/20/18 19:01 Urine Color DK YELLOW Urine Appearance CLEAR (CLEAR) Urine pH 5.0 (4.5-7.5) Urine Specific [place] 1.028 (1.000-1.030) Urine Protein TRACE (NEG) Urine Glucose (UA) NEG (NEG) Urine Ketones 3+ (NEG) Urine Occult Blood 2+ (NEG) Urine Nitrite NEG (NEG) Urine Bilirubin NEG (NEG) Urine Urobilinogen NEG (NEG) Urine Leukocyte Esterase TRACE (NEG) Urine WBC (Auto) 1-5 /hpf (0-5) Urine RBC (Auto) 0-4 /hpf (0-4) Urine Hyaline Casts (Auto) 10-30 /lpf (0-5) Urine Epithelial Cells (Auto) >30 /lpf (0-5) Urine Bacteria (Auto) NEG (NEG) Urine Test NEG (NEG) White Blood Count 7.91 K/uL (4.8-10.8) Red Blood Count 4.73 M/uL (4.2-5.4) Hemoglobin 15.2 g/dL (12.0-16.0) Hematocrit 42.4 % (37-47) Mean Corpuscular Volume 89.6 fL (80-100) Mean Corpuscular Hemoglobin 32.1 pg (25-34) Mean Corpuscular Hemoglobin Concent 35.8 g/dl (32-36) Platelet Count 211 K/uL (130-400) Mean Platelet Volume 9.3 fL (7.4-10.4) Neutrophils (%) (Auto) 86.6 % Lymphocytes (%) (Auto) 8.3 % Monocytes (%) (Auto) 4.9 % Eosinophils (%) (Auto) 0.0 % Basophils (%) (Auto) 0.1 % Neutrophils # (Auto) 6.84 K/uL (1.4-6.5) Lymphocytes # (Auto) 0.66 K/uL (1.2-3.4) Monocytes # (Auto) 0.39 K/uL (0.11-0.59) Eosinophils # (Auto) 0.00 K/uL (0-0.5) Basophils # (Auto) 0.01 K/uL (0-0.2) RDW Standard Deviation 39.5 fL (36.4-46.3) RDW Coefficient of Variation 12.2 % (11.5-14.5) Immature Granulocyte % (Auto) 0.1 % Immature Granulocyte # (Auto) 0.01 K/uL (0.00-0.02) Anion Gap 9.0 mmol/L (3-11) Est Creatinine Clear Calc Drug Dose 100.1 ml/min Estimated GFR () 122.2 Estimated GFR (Non- 105.4 BUN/Creatinine Ratio 10.1 (10-20) Calcium Level 8.9 mg/dl (8.5-10.1) Total Bilirubin 1.1 mg/dl (0.2-1) Direct Bilirubin mg/dl (0-0.2) Aspartate Amino Transf (AST/SGOT) 21 U/L (15-37) Alanine Aminotransferase (ALT/SGPT) 21 U/L (12-78) Alkaline Phosphatase 79 U/L (45-117) Troponin I < 0.015 ng/ml (0-0.045) Total Protein 8.1 gm/dl (6.4-8.2) Albumin 4.1 gm/dl (3.4-5.0) Lipase 91 U/L (73-393) Chemistry Specimen Hemolysis Lactic Acid Level 0.7 mmol/L (0.4-2.0) Date/Time Source Procedure Growth Status 03/20/18 18:36 Stool C.difficile Toxin B Gene (PCR) - Final No C. difficile toxin B gene detected Complete Laboratory results per my review. Medications Administered Medications (Trade) Dose Ordered Sig/Li Route Start Time Stop Time Status Last Admin Dose Admin Sodium Chloride 2,000 ml @ 999 mls/hr Q2H1M STAT IV 03/20/18 14:49 03/20/18 16:49 DC 03/20/18 15:30 999 MLS/HR Ondansetron HCl (Zofran Inj) 4 mg NOW STAT IV 03/20/18 14:49 03/20/18 14:52 DC 03/20/18 15:50 4 MG Sodium Chloride 1,000 ml @ 999 mls/hr Q1H1M STAT IV 03/20/18 17:57 03/20/18 18:57 DC 03/20/18 18:00 999 MLS/HR Ciprofloxacin (Cipro Tab) 500 mg NOW STAT PO 03/20/18 19:16 03/20/18 19:17 DC 03/20/18 19:21 500 MG ED Course ED COURSE: Vital signs were reviewed and showed the patient is tachycardic The patients medical record was reviewed The above diagnostic studies were performed and reviewed. ED treatments and interventions as stated above. 1443: The patient was evaluated in room C1. A complete history and physical examination was performed. 1449: Zofran 4 mg IV, NSS 2000 ml @ 999 mls/hr IV. 1757: NSS 1000 ml @ 999 mls/hr IV. 1758: I discussed the patients case with Dr. Hitchcock, [facility]. If the patient is sent home, he defers antibiotics to the ED and recommends outpatient follow up. 1916: Cipro 500 mg PO. 1920: Upon reevaluation, the patient is resting comfortably. I offered the patient a stay in the hospital, but she declines saying she would like to go home. 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 I discussed my findings with the patient and she understands and agrees with the treatment plan. Based on the patients age, coexisting illnesses, exam and lab findings the decision to treat as an outpatient was made. The patient remained stable while under my care. The patient appeared well at the time of discharge. Medical Decision Differential diagnoses includes but is not limited to gastritis, peptic ulcer disease, GERD, gallbladder disease, pancreatitis, small bowel obstruction, acute coronary syndrome, pericarditis, ischemic bowel, irritable bowel disease, irritable bowel syndrome, appendicitis, diverticulitis, malignancy, hernia, urinary tract infection, torsion, /ectopic , perforation, trauma, infectious. Patient is a 22-year-old female who presents the ER for diarrhea along with intermittent vomiting which is present for the past 24 hours. She notes that she has had 3 bowel movements with small streaking of blood. She notes her last bowel movement was without blood. Vitals were obtained and she was initially fairly tachycardic in the 130s. She notes that she does have a history of anxiety. CBC along with BMP, LFTs, bilirubin and troponin was unremarkable. Lipase was normal. UA was contaminated with multiple epithelial cells. was negative. Patient was given initially 2 L normal saline. Heart rate trended down to 100. CT abdomen pelvis showed pancolitis. C. difficile resulted in was negative. Remainder of stool cultures were pending. She does note that she has a lizard at home which she was playing with him progress to clean her hands. Salmonella is in differential. Patient was given additional liter of fluid and lactate was obtained. It was normal at 0.7. Discussed case with GI. Pressure they recommend stool cultures and defer to myself for placement of antibiotics. After prolonged discussion with the patient she still remains slightly tachycardic at 103. At this time I did recommend observation although she was feeling significant better. She declined that she notes she is to take care of her kids kamila. Explained risk and benefits. After informed refusal of care patient was discharged. I did place her on Cipro. And noted that if anything worsens she should return immediately to the ER. She should follow-up within 24 hours. She was given Zofran as well. This pancolitis is clearly not ischemic. I do favor this is infectious but with a negative C. difficile I do favor likely Salmonella cannot be certain. Did place on Cipro and she will follow-up as an outpatient and return if anything worsens. Rectal was heme-negative. Discussed with Pt concerning signs and symptoms to watch out for. Pt was instructed to follow up with their PCP and discussed with the patient their option to return to the ED at anytime for persistent or worsening symptoms. The appropriate anticipatory guidance and out-patient management, including indications for return to the emergency department, were explained at length to the patient and understood. Medication Reconcilliation Current Medication List: was personally reviewed by me Blood Pressure Screening Patient's blood pressure: Normal blood pressure Blood pressure disposition: Did not require urgent referral Consults Time Called: 175 Consulting Physician: Dr. Hitchcock, [facility] Returned Call: [phone] I discussed the patients case with Dr. Hitchcock, [facility]. If the patient is sent home, he defers antibiotics to the ED and recommends outpatient follow up. Impression Primary Impression: Pancolitis Scribe Attestation The scribe's documentation has been prepared under my direction and personally reviewed by me in its entirety. I confirm that the note above accurately reflects all work, treatment, procedures, and medical decision making performed by me. Departure Information Dispostion Home / Self-Care Prescriptions Ondansetron Hcl (ZOFRAN) 4 Mg Tab 4 MG PO TID Y for Nausea, #10 TAB Prov: Benito Anna, DO 03/20/18 Ciprofloxacin Hcl (CIPRO) 500 Mg Tab 500 MG PO BID, #14 TAB Prov: Benito Anna, DO 03/20/18 Referrals Smiley Duncan PA-C (PCP) Patient Instructions ED Gastroenteritis [place], [facility] Additional Instructions Please follow up with your primary care doctor with in the next 24 hours. Any worsening of your symptoms, please return to the ED immediately. This includes any fevers greater than 100.4, worsening pain, chest pain, shortness breath, persistent nausea, vomiting, unable to eat or drink, or any other concerning signs or symptoms from your standpoint. Please take antibiotics as prescribed. Please take Zofran as prescribed. Any increased blood in your stool please return immediately to the ER. Any dizziness, lightheadedness, passing out or any other concerning signs or symptoms please come back as soon as possible.
== END 2018-03-20 19:30 | disposition home or self-care (01) ==
LOC: C.EDB 14:36 → C.EDC 19:30
DX: K51.00 Ulcerative (chronic) pancolitis without complications (principal); Z88.8 Allergy status to other drugs, medicaments and biological substances